=== PATIENT | female | born 1935 | race Caucasian/White ===

== ENCOUNTER → 2016-09-20 | Outpatient (CLI) | payer MEDICARE, BC ==
--- NOTE | 2016-09-20 12:10 | REPMRS ---
Patient History The patient states she had a clinical breast exam in 09/2016. Patient has history of Basal Cell cancer at age 58. No known family history of cancer. Digital Woman Screen Mammo: September 20, 2016 - Exam #: [id number] Bilateral CC and MLO view(s) were taken. Technologist: Niurka Spears Technologist Prior study comparison: July 25, 2015, digital woman screen mammo performed at [facility]. August 10, 2014, right breast digital mammo diagnostic unilateral, performed at [facility]. July 22, 2014, digital woman screen mammo performed at [facility]. FINDINGS: There are scattered fibroglandular densities. There has been no change in the appearance of the mammogram from the prior studies. There is a mild amount of scattered fibroglandular density which is fairly symmetric. There is no interval development of dominant mass, architectural distortion, or clustered microcalcification suggestive of malignancy. ASSESSMENT: BI-RADS/ACR category 1 mammogram. Negative. Recommendation Routine screening mammogram in 1 year (for women over age 40). This mammogram was interpreted with the aid of an FDA-approved computer-aided dectection system. Electronically Signed By: Andrea Hamlin MD 09/20/16 [id number]
== END ==
LOC: M WHC 10:34
PROVIDERS: ATTEND Nurse Practitioner Women's Health
DX: Z12.31 Encounter for screening mammogram for malignant neoplasm of breast (principal); Z78.0 Asymptomatic menopausal state
CPT/HCPCS: G0202; G0463

== ENCOUNTER 2017-03-04 21:47 | Emergency (ER) | payer MEDICARE, BC ==
[~2017-03-04] VITALS: Ht 162.6 cm; Wt 82.0 kg
[2017-03-04] MEDS ORDERED: NS 1,000 ML IV SCH (21:56)
[2017-03-04] MEDS ORDERED: ATEN25TA PO (22:05)
[2017-03-04] MEDS ORDERED: QUIN5TAB7 PO (22:06)
[2017-03-04] MEDS ORDERED: SIMV20TA2 PO (22:07)
[2017-03-04] MEDS ORDERED: DILT240C77 PO (22:12)
[2017-03-04] MEDS ORDERED: METOPROLOL TART 25 MG TABLET PO ONE (22:15)
[2017-03-04 22:38] LABS: BASO % 0.4 % (0.0-1.0); EOS # 0.2 K/mm3 (0.0-0.50); EOS % 2.8 % (0.0-3.0); LARGE UNSTAINED CELL # 0.1 K/mm3 (0.0-0.4); LARGE UNSTAINED CELL % 1.3 % (0.0-4.0); LYMPH # 1.3 K/mm3 (1.5-4.5); LYMPH % 17.3 % (24.0-44.0); MEAN CORPUSCULAR HEMOGLOBIN 32.6 pg (27.0-33.0); MEAN CORPUSCULAR HGB CONC 33.5 g/dl (32.0-36.5); MEAN CORPUSCULAR VOLUME 97.3 fl (80.0-96.0); MONO # 0.6 K/mm3 (0.0-0.8); NEUTROPHILS % 70.2 % (36.0-66.0); PLATELET COUNT, AUTOMATED 262 k/mm3 (150-450); RED CELL DISTRIBUTION WIDTH 12.8 % (11.5-14.5); WHITE BLOOD COUNT 7.2 K/mm3 (4.0-10.0)
[2017-03-04] MEDS: METOPROLOL 5 MG/5 ML VIAL IV SCH ×3 (22:48→23:04)
[2017-03-04 22:50] LABS: INR 0.92
[2017-03-04 22:56] LABS: ALBUMIN 3.8 GM/DL (3.2-5.2); ALBUMIN/GLOBULIN RATIO 1.09 (1.00-1.93); ALKALINE PHOSPHATASE 99 U/L (45-117); ALT/SGPT 19 U/L (12-78); ANION GAP 8 MEQ/L (8-16); AST/SGOT 17 U/L (15-37); BILIRUBIN,DIRECT < 0.1 MG/DL (0.0-0.2); BILIRUBIN,TOTAL 0.2 MG/DL (0.2-1.0); BLOOD UREA NITROGEN 18 MG/DL (7-18); CARBON DIOXIDE LEVEL 24 MEQ/L (21-32); CHLORIDE LEVEL 109 MEQ/L (98-107); CREATININE FOR GFR 1.03 MG/DL (0.55-1.02); GLOMERULAR FILTRATION RATE 54.7 (>32); GLUCOSE, FASTING 125 MG/DL (83-110); POTASSIUM SERUM 4.1 MEQ/L (3.5-5.1); SODIUM LEVEL 141 MEQ/L (136-145); TOTAL PROTEIN 7.3 GM/DL (6.4-8.2)
[2017-03-04] MEDS ORDERED: METOPROLOL 5 MG/5 ML VIAL IV STA (23:21)
[2017-03-05] MEDS ORDERED: ATEN50TA2 PO
[2017-03-05] MEDS ORDERED: METOPROLOL TART 50 MG TAB PO ONE (00:45)
[2017-03-05] MEDS: METOPROLOL 5 MG/5 ML VIAL IV SCH ×4 (01:45→02:13)
[2017-03-05 02:13] VITALS: BP 146/88
[2017-03-05] MEDS ORDERED: ELIQ5TAB PO (03:23)
[2017-03-05] MEDS ORDERED: APIXABAN 5 MG TAB (ELIQUIS) PO ONE (03:30)
[2017-03-05 03:40] VITALS: BP 134/90
--- NOTE | 2017-03-05 07:37 | REP ---
Portable chest, single AP view, the patient sitting, 10:38 p.m.: Comparison is 11/12/2014. The lung pro are clear. The cardiac size is normal. The hellen, mediastinum, and bony thorax are unremarkable. Impression: Negative portable chest. There is no interval change. Signed by Boston Lazo MD 03/05/2017 07:29 A
--- NOTE | 2017-03-05 09:04 | ECGEPIP ---
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
--- NOTE | 2017-03-05 09:05 | ECGEPIP ---
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
== END 2017-03-05 04:11 | disposition home or self-care (01) ==
LOC: EDBD 21:47 → M ED 21:47
DX: I48.91 Unspecified atrial fibrillation (principal); R00.2 Palpitations; Z79.899 Other long term (current) drug therapy

== ENCOUNTER 2017-12-09 08:32 | Day surgery (SDC) | payer MEDICARE, BC ==
[2017-12-09 09:06] LABS: HEMATOCRIT 37.1 % (36.0-47.0); HEMOGLOBIN 12.3 g/dl (12.0-15.5); MEAN CORPUSCULAR HEMOGLOBIN 32.3 pg (27.0-33.0); MEAN CORPUSCULAR HGB CONC 33.2 g/dl (32.0-36.5); MEAN CORPUSCULAR VOLUME 97.4 fl (80.0-96.0); PLATELET COUNT, AUTOMATED 270 10^3/uL (150-450); RED BLOOD COUNT 3.81 10^6/uL (4.00-5.40); RED CELL DISTRIBUTION WIDTH 12.6 % (11.5-14.5)
[2017-12-09] MEDS: LR 1,000 ML IV (09:21)
[2017-12-09 09:24] LABS: ALBUMIN 3.9 GM/DL (3.2-5.2); ALBUMIN/GLOBULIN RATIO 0.89 (1.00-1.93); ALKALINE PHOSPHATASE 85 U/L (45-117); ALT/SGPT 15 U/L (12-78); ANION GAP 5 MEQ/L (8-16); AST/SGOT 18 U/L (7-37); BILIRUBIN,TOTAL 0.4 MG/DL (0.2-1.0); BLOOD UREA NITROGEN 18 MG/DL (7-18); CALCIUM LEVEL 9.4 MG/DL (8.8-10.2); CARBON DIOXIDE LEVEL 25 MEQ/L (21-32); CHLORIDE LEVEL 110 MEQ/L (98-107); CREATININE FOR GFR 0.97 MG/DL (0.55-1.30); GLOMERULAR FILTRATION RATE 58.5 (>32); GLUCOSE, FASTING 109 MG/DL (70-100); SODIUM LEVEL 140 MEQ/L (136-145); TOTAL PROTEIN 8.3 GM/DL (6.4-8.2)
[2017-12-09] MEDS ORDERED: PROPOFOL 200 MG/20 ML VIAL As Ordered ×2 (10:08→11:26)
[2017-12-09] MEDS ORDERED: MIDAZOLAM INJ 2 MG/2 ML VIAL (J2250) As Ordered (10:08)
[2017-12-09] MEDS ORDERED: LIDOCAINE 2% INJ 100 MG/5 ML SDV (FOR ANES.) As Ordered (10:08)
[2017-12-09] MEDS ORDERED: fentaNYL 100 MCG/2 ML INJECTION (J3010) As Ordered (10:08)
[2017-12-09] MEDS: LIDOCAINE W/EPINEPHRINE 1% 20ML VIAL As Ordered (11:06)
[2017-12-09] MEDS: BACITRACIN OINT 30GM As Ordered (12:05)
== END 2017-12-09 13:25 | disposition home or self-care (01) ==
LOC: M SDC 08:32
DX: C44.41 Basal cell carcinoma of skin of scalp and neck (principal); I48.91 Unspecified atrial fibrillation; Z79.02 Long term (current) use of antithrombotics/antiplatelets; K21.9 Gastro-esophageal reflux disease without esophagitis; G47.30 Sleep apnea, unspecified; Z79.899 Other long term (current) drug therapy
CPT/HCPCS: 11622

== ENCOUNTER → 2018-01-02 | Outpatient (CLI) | payer MEDICARE, BC | LOC: M WHC 09:34 | DX: Z01.419 Encounter for gynecological examination (general) (routine) without abnormal findings (principal); Z12.31 Encounter for screening mammogram for malignant neoplasm of breast (principal) | CPT/HCPCS: 77067 ==

== ENCOUNTER → 2018-02-23 | Outpatient (REF) | payer MEDICARE, BC | LOC: M SFHCLERA 13:48 | DX: R30.0 Dysuria (principal) | CPT/HCPCS: 87086 ==

== ENCOUNTER 2018-06-28 14:30 | Emergency (ER) | payer MEDICARE, BC ==
[2018-06-28 15:25] LABS: BASO % 0.2 % (0.0-1.0); EOS % 0.3 % (0.0-3.0); HEMATOCRIT 36.4 % (36.0-47.0); IMMATURE GRANULOCYTE % 0.5 % (0-3.0); LYMPH # 0.8 10^3/uL (1.5-4.5); LYMPH % 12.2 % (24.0-44.0); MEAN CORPUSCULAR HEMOGLOBIN 31.8 pg (27.0-33.0); MEAN CORPUSCULAR VOLUME 96.6 fl (80.0-96.0); MONO % 14.7 % (0.0-5.0); NEUTROPHILS # 4.8 10^3/uL (1.8-7.7); NEUTROPHILS % 72.1 % (36.0-66.0); PLATELET COUNT, AUTOMATED 254 10^3/uL (150-450); RED BLOOD COUNT 3.77 10^6/uL (4.00-5.40); RED CELL DISTRIBUTION WIDTH 12.7 % (11.5-14.5); WHITE BLOOD COUNT 6.6 10^3/uL (4.0-10.0)
[2018-06-28 15:32] LABS: KETONE, URINE AUTO RFX TRACE mg/dL (NEGATIVE); MUCUS, URINE RFX SMALL (NEGATIVE); NITRITE, URINE AUTO RFX NEGATIVE (NEGATIVE); RBC, URINE AUTO RFX 2 /HPF (0-3); SPECIFIC GRAVITY UR AUTO RFX 1.025 (1.002-1.035); SQUAM EPITHELIAL CELL UR AURFX 1 /HPF (0-6); WBC, URINE AUTO RFX 2 /HPF (0-3)
[2018-06-28 15:36] LABS: PROTHROMBIN TIME 16.4 SECONDS (12.1-14.4)
[2018-06-28 15:37] LABS: PARTIAL THROMBOPLASTIN TIME 30.3 SECONDS (25.4-37.6)
[2018-06-28] MEDS: MORPHINE 2 MG/ML 1ML SYRINGE (J2270) IV (15:43)
[2018-06-28] MEDS: ONDANSETRON 4MG/2ML VIAL (J2405) IV (15:43)
[2018-06-28] MEDS: NS 1,000 ML IV (15:44)
[2018-06-28] MEDS: ACETAMINOPHEN TAB 650MG DOSE (2X325MG) PO (15:44)
[2018-06-28 15:55] LABS: LEUKOCYTE ESTERASE UR AUTO RFX TRACE (NEGATIVE)
[2018-06-28 15:56] LABS: ALBUMIN 3.4 GM/DL (3.2-5.2); ALBUMIN/GLOBULIN RATIO 0.85 (1.00-1.93); ALKALINE PHOSPHATASE 69 U/L (45-117); ALT/SGPT 21 U/L (12-78); ANION GAP 6 MEQ/L (8-16); AST/SGOT 32 U/L (7-37); BILIRUBIN,DIRECT < 0.1 MG/DL (0.0-0.2); BILIRUBIN,TOTAL 0.6 MG/DL (0.2-1.0); BLOOD UREA NITROGEN 14 MG/DL (7-18); CALCIUM LEVEL 9.1 MG/DL (8.8-10.2); CARBON DIOXIDE LEVEL 26 MEQ/L (21-32); CHLORIDE LEVEL 104 MEQ/L (98-107); CK-MB VALUE MASS < 1.0 NG/ML (<3.6); CPK CREATINE PHOSPHOKINASE 116 U/L (26-192); CREATININE FOR GFR 0.92 MG/DL (0.55-1.30); GLOMERULAR FILTRATION RATE > 60.0 (>32); GLUCOSE, FASTING 118 MG/DL (70-100); LIPASE 133 U/L (73-393); MB/CK RELATIVE INDEX 0.86 (< OR =4); SODIUM LEVEL 136 MEQ/L (136-145); TOTAL PROTEIN 7.4 GM/DL (6.4-8.2); TROPONIN I < 0.02 NG/ML (< 0.10)
[2018-06-28] MEDS ORDERED: GASTROGRAFIN SOLUTION 30ML (Q9963) As Ordered (16:54)
[2018-06-28] MEDS: GASTROGRAFIN SOLUTION 30ML PO ×2 (17:00→17:35)
[2018-06-28] MEDS: CIPROFLOXACIN 400 MG in APPROPRIATE DILUENT 1 EA IV (18:34)
[2018-06-28] MEDS ORDERED: ISOVUE-370 76% 100ML VIAL (Q9967) As Ordered (18:36)
== END 2018-06-28 20:15 | disposition home or self-care (01) ==
LOC: M ED 14:30
DX: A04.5 Campylobacter enteritis (principal); A08.0 Rotaviral enteritis; R94.31 Abnormal electrocardiogram [ECG] [EKG]; I48.91 Unspecified atrial fibrillation; I10 Essential (primary) hypertension; E78.79 Other disorders of bile acid and cholesterol metabolism; Z79.01 Long term (current) use of anticoagulants; Z79.899 Other long term (current) drug therapy
CPT/HCPCS: J2405

== ENCOUNTER → 2019-01-07 | Outpatient (CLI) | payer MEDICARE, BC ==
[~2019-01-07] MED LIST: ATEN25TA PO; ATEN50TA2 PO; CALTCHW4 PO; CIPR-249 PO; DILT1CAP5 PO; DILT1CAP6 PO; ELIQ5TAB PO; LACTTAB PO; MELA10TA3 PO; METO50TA7; OCUVTAB PO; OMEP20CA3 PO; PERCOCET PO; PRAV10TA3 PO; PROB1CHW7 PO; QUIN1TAB PO; QUIN1TAB3 PO; SIMV20TA2 PO; TYLE500T78 PO; VITA400C7 PO; VITA500T3 PO; ZYRT10CA PO
--- NOTE | 2019-01-07 12:32 | REPMRS ---
Patient History The patient states she had a clinical breast exam in 12/2018. Patient has history of basal cell skin cancer at age 58. No known family history of cancer. No Hormone Replacement Therapy 3D TOMOSYNTHESIS WAS PERFORMED. Digital Woman Screen Mammo: January 07, 2019 - Exam #: [id number] Bilateral CC and MLO view(s) were taken. Technologist: Jesica Domingo, Technologist Prior study comparison: January 02, 2018, digital woman screen mammo performed at [facility]. September 20, 2016, digital woman screen mamm[facility]. FINDINGS: The breast tissue is heterogeneously dense. This may lower the sensitivity of mammography. There has been no change in the appearance of the mammogram from the prior studies. There is a moderate amount of residual fibroglandular tissue which is fairly symmetric. There is no interval development of dominant mass, areas of architectural distortion, or clustered microcalcification typical of malignancy. Assessment: BI-RADS/ACR category 1 mammogram. Negative Mammogram. Recommendation Routine screening mammogram in 1 year (for women over age 40). This mammogram was interpreted with the aid of an FDA-approved computer-aided dectection system. Electronically Signed By: Boston Espinoza MD 01/07/19 [id number]
== END ==
LOC: M WHC 10:46
PROVIDERS: ATTEND Nurse Practitioner Women's Health
DX: Z01.419 Encounter for gynecological examination (general) (routine) without abnormal findings (principal); Z12.31 Encounter for screening mammogram for malignant neoplasm of breast; Z85.828 Personal history of other malignant neoplasm of skin
CPT/HCPCS: 77063; 77067; G0101

== ENCOUNTER → 2020-01-11 | Outpatient (CLI) | payer MEDICARE, BC ==
[~2020-01-11] MED LIST changes: +CYAN500T8 PO; +OMEP1CAP73 PO; -OMEP20CA3 PO; -SIMV20TA2 PO; +SIMV20TA22 PO; -VITA500T3 PO
--- NOTE | 2020-01-11 12:17 | REPMRS ---
Patient History The patient states she has not had a clinical breast exam in over a year. No known family history of cancer. No Hormone Replacement Therapy 3D TOMOSYNTHESIS WAS PERFORMED. The Dary Malcolm lifetime risk for breast cancer is 0.3%. VOLPARA DENSITY A. Digital Woman Screen Mammo: January 11, 2020 - Exam #: [id number] Bilateral CC and MLO view(s) were taken. Technologist: Izzy Pederson, Technologist Prior study comparison: January 07, 2019, bilateral digital woman screen mammo performed at [facility]. January 02, 2018, digital woman screen mammo performed at [facility]. FINDINGS: There are scattered fibroglandular densities. There has been no change in the appearance of the mammogram from the prior studies. There is a mild amount of residual fibroglandular tissue which is fairly symmetric. There is no interval development of dominant mass, architectural distortion, or clustered microcalcification suggestive of malignancy. Assessment: BI-RADS/ACR category 1 mammogram. Negative Mammogram. Recommendation Routine screening mammogram in 1 year (for women over age 40). This mammogram was interpreted with the aid of an FDA-approved computer-aided dectection system. Electronically Signed By: Boston Espinoza MD 01/11/20 [id number]
== END ==
LOC: M WHC 11:13
PROVIDERS: ATTEND Nurse Practitioner Women's Health
DX: Z12.31 Encounter for screening mammogram for malignant neoplasm of breast (principal)
CPT/HCPCS: 77063; 77067; G0463

== ENCOUNTER → 2020-05-26 | Outpatient (CLI) | payer MEDICARE, BC | LOC: M WUC 09:39 | PROVIDERS: ATTEND Internal Medicine Cardiovascular Disease | DX: I48.0 Paroxysmal atrial fibrillation (principal) ==

== ENCOUNTER → 2020-06-03 | Outpatient (CLI) | payer MEDICARE, BC | LOC: M LABSMTC 09:59 | PROVIDERS: ATTEND Internal Medicine Cardiovascular Disease | DX: Z20.828 Contact with and (suspected) exposure to other viral communicable diseases (principal) | CPT/HCPCS: C9803; U0003 ==

== ENCOUNTER → 2021-01-11 | Outpatient (CLI) | payer MEDICARE, BC ==
[~2021-01-11] MED LIST changes: +CYAN500T14 PO; -CYAN500T8 PO
--- NOTE | 2021-01-11 11:58 | REPMRS ---
Patient History The patient states she has not had a clinical breast exam in over a year. No known family history of cancer. No Hormone Replacement Therapy No breast complaints today Patient signed the MRS sheet 1st covid vaccine 09/23/20-left arm-Moderna 2nd covid vaccine 10/24/20-left arm Priors on PACS Patient Identification Verified Pacemaker 02/2020 Patient states she has gained some weight, not sure how much Best views possible on both MLO'S, patient is becoming more kyphotic and has gained weight in the last year-not sure how much, Digital Woman Screen Mammo: January 11, 2021 - Exam #: [id number] Bilateral CC and MLO view(s) were taken. Technologist: Libby Cabral, Technologist Prior study comparison: January 11, 2020, bilateral digital woman screen mammo performed at [facility]. January 07, 2019, bilateral digital woman screen mammo performed at [facility]. FINDINGS: There are scattered fibroglandular densities. Screening. Digital screening (2D) mammography was performed bilaterally in the CC and MLO projections. Additionally, breast tomosynthesis (3D mammography) was performed bilaterally in the CC and MLO projections. Todays exam was compared to the prior exams. By history, the patient has no complaints of a palpable breast abnormality or other significant breast complaints. The breasts are unchanged in size and shape. There are no hollis-soft tissue densities or spiculated masses. There is no internal architectural distortion. Once again, stable benign appearing calcifications are seen.There are no suspicious hollis-calcific clusters. Skin thickening or nipple retraction is not present. IMPRESSION: BI-RADS Category 2- Benign Findings. There is no evidence of malignant alteration of the breasts. Followup examination recommended in one year. The Volpara volumetric breast density category is B, there are scattered areas of fibroglandular density. This mammogram was read with the assistance of [employer],an FDA approved computer aided detection system for mammography. Negative x-ray reports should not delay surgical consultation if a dominant or clinically suspicious mass is present. Not all breast cancers can be identified by mammography. Therefore, we recommend that you continue to perform regular breast self-examination and physical examination and then promptly contact your physician of any concerns or changes. Adenosis and dense breasts may obscure an underlying neoplasm. Assessment: BI-RADS/ACR category 2 mammogram. Benign Findings. Recommendation Routine screening mammogram of both breasts in 1 year. Electronically Signed By: Rm Guillen DO 01/11/21 [id number]
== END ==
LOC: M WHC 10:59
PROVIDERS: ATTEND Nurse Practitioner Women's Health
DX: Z12.31 Encounter for screening mammogram for malignant neoplasm of breast (principal); R92.1 Mammographic calcification found on diagnostic imaging of breast

== ENCOUNTER → 2021-07-25 | Outpatient (CLI) | payer BC, MEDICARE ==
[2021-07-25 17:48] LABS: HEMATOCRIT 31.8 % (36.0-47.0); HEMOGLOBIN 10.2 g/dl (12.0-15.5); MEAN CORPUSCULAR HEMOGLOBIN 32.9 pg (27.0-33.0); MEAN CORPUSCULAR HGB CONC 32.1 g/dl (32.0-36.5); MEAN CORPUSCULAR VOLUME 102.6 fl (80.0-96.0); PLATELET COUNT, AUTOMATED 217 10^3/uL (150-450); WHITE BLOOD COUNT 4.8 10^3/uL (4.0-10.0)
[2021-07-25 17:51] LABS: ALBUMIN 3.8 GM/DL (3.2-5.2); BILIRUBIN,TOTAL 0.5 MG/DL (0.2-1.0); CALCIUM LEVEL 9.8 MG/DL (8.8-10.2); CREATININE FOR GFR 1.02 MG/DL (0.55-1.30); GLOMERULAR FILTRATION RATE 54.8 (>32); PERCENT SATURATION 28.9 % (13.2-45.0); POTASSIUM SERUM 5.2 MEQ/L (3.5-5.1); TOTAL PROTEIN 6.9 GM/DL (6.4-8.2)
[2021-07-26 10:58] LABS: FOLATE 14.1 NG/ML
== END ==
LOC: M PLALAB 15:04
PROVIDERS: ATTEND Physician Assistant Medical
DX: D50.9 Iron deficiency anemia, unspecified (principal)

== ENCOUNTER → 2021-08-30 | Outpatient (CLI) | payer MEDICARE ==
[~2021-08-30] MED LIST changes: +BALANCE OF NATURE PO; +BUSP5TA PO; +COQ1200C3 PO; +E-Z-PAQUE 96% w/w SUSP 176GM BTL As Ordered ONE; +LABE200T32 PO; +LASI20TA3 PO; +PRESCAP4 PO; +SERT50TA29 PO; +TRAM50TA2 PO; +VALS1TAB67 PO
== END ==
LOC: M RAD 09:32
PROVIDERS: ATTEND Physician Assistant Medical
DX: D64.9 Anemia, unspecified (principal)

== ENCOUNTER → 2021-08-30 | Outpatient (CLI) | payer MEDICARE ==
[~2021-08-30] MED LIST changes: -E-Z-PAQUE 96% w/w SUSP 176GM BTL As Ordered ONE
== END ==
LOC: M LABSMTC 11:24
PROVIDERS: ATTEND Anesthesiology
DX: Z01.818 Encounter for other preprocedural examination (principal); Z20.822 Contact with and (suspected) exposure to COVID-19

== ENCOUNTER 2021-09-04 11:16 | Day surgery (SDC) | payer MEDICARE ==
[~2021-09-04] VITALS: Ht 162.6 cm; Wt 81.4 kg
[~2021-09-04 11:16] MED LIST changes: +NS 1,000 ML IV ONE
[2021-09-04] MEDS ORDERED: LIDOCAINE 2% 100MG/5ML SDV (FOR ANES.) As Ordered ONE (12:35)
[2021-09-04] MEDS ORDERED: propofoL 200 MG/20 ML VIAL As Ordered ONE (12:35)
[2021-09-04 13:55] VITALS: BP 156/68
== END 2021-09-04 14:10 | disposition home or self-care (01) ==
LOC: M OPP 11:16
PROVIDERS: ATTEND Internal Medicine Gastroenterology
DX: K57.30 Diverticulosis of large intestine without perforation or abscess without bleeding (principal); K64.8 Other hemorrhoids; D50.9 Iron deficiency anemia, unspecified; K22.2 Esophageal obstruction; Z79.891 Long term (current) use of opiate analgesic; Z79.899 Other long term (current) drug therapy; Z88.1 Allergy status to other antibiotic agents; Z80.3 Family history of malignant neoplasm of breast; Z80.8 Family history of malignant neoplasm of other organs or systems

== ENCOUNTER → 2021-09-26 | Outpatient (CLI) | payer MEDICARE ==
[~2021-09-26] MED LIST changes: -NS 1,000 ML IV ONE
== END ==
LOC: M SOG 08:29
PROVIDERS: ATTEND Orthopaedic Surgery Hand Surgery
DX: M79.641 Pain in right hand (principal); M79.642 Pain in left hand; M19.031 Primary osteoarthritis, right wrist; M19.032 Primary osteoarthritis, left wrist

== ENCOUNTER → 2021-10-23 | Outpatient (CLI) | payer MEDICARE ==
[~2021-10-23] MED LIST changes: +ACE65ERTAB PO; +LABE200T3 PO; -LABE200T32 PO
== END ==
LOC: M LABSMTC 09:16
PROVIDERS: ATTEND Anesthesiology
DX: Z01.812 Encounter for preprocedural laboratory examination (principal); Z20.822 Contact with and (suspected) exposure to COVID-19

== ENCOUNTER 2021-10-27 06:03 | Day surgery (SDC) | payer MEDICARE ==
[~2021-10-27] VITALS: Ht 162.6 cm; Wt 82.0 kg
[2021-10-27] MEDS ORDERED: LR 1,000 ML IV ONE (06:30)
[2021-10-27] MEDS ORDERED: fentaNYL 100 MCG/2 ML INJECTION As Ordered ONE (07:16)
[2021-10-27] MEDS ORDERED: LIDOCAINE 2% 100MG/5ML SDV (FOR ANES.) As Ordered ONE (07:16)
[2021-10-27] MEDS ORDERED: propofoL 200 MG/20 ML VIAL As Ordered ONE ×2 (07:16→07:52)
[2021-10-27] MEDS ORDERED: BUPIVACAINE HCL 0.25% 30ML VIAL As Ordered ONE (07:17)
[2021-10-27] MEDS ORDERED: MIDAZOLAM INJ 2MG/2ML VIAL (J2250 PER 1MG) As Ordered ONE (07:17)
[2021-10-27] MEDS ORDERED: KETOROLAC 60MG 2ML VIAL As Ordered ONE (08:03)
[2021-10-27 08:30] VITALS: BP 165/80
[2021-10-27] MEDS ORDERED: oxyCODONE 5MG TAB PO PRN (08:35)
[2021-10-27] MEDS ORDERED: ONDANSETRON 4MG/2ML VIAL IV PRN (08:35)
[2021-10-27] MEDS ORDERED: LR 1,000 ML IV SCH (08:35)
== END 2021-10-27 08:42 | disposition home or self-care (01) ==
LOC: M SDC 06:03
PROVIDERS: ATTEND Orthopaedic Surgery Hand Surgery
DX: G56.02 Carpal tunnel syndrome, left upper limb (principal); I48.91 Unspecified atrial fibrillation; I10 Essential (primary) hypertension; E78.5 Hyperlipidemia, unspecified; G47.33 Obstructive sleep apnea (adult) (pediatric); K44.9 Diaphragmatic hernia without obstruction or gangrene; K21.9 Gastro-esophageal reflux disease without esophagitis; K58.8 Other irritable bowel syndrome; Z79.01 Long term (current) use of anticoagulants; Z79.899 Other long term (current) drug therapy; Z88.0 Allergy status to penicillin; Z88.8 Allergy status to other drugs, medicaments and biological substances
CPT/HCPCS: 29848; J1885; J2250; J3010

== ENCOUNTER → 2022-03-05 | Outpatient (CLI) | payer MEDICARE ==
[~2022-03-05] MED LIST changes: +ENOX80IN3; +RELIEF FACTOR PO
== END ==
LOC: M SOG 15:29
PROVIDERS: ATTEND Orthopaedic Surgery Hand Surgery
DX: M79.645 Pain in left finger(s) (principal); M19.032 Primary osteoarthritis, left wrist; M19.042 Primary osteoarthritis, left hand

== ENCOUNTER → 2022-04-13 | Outpatient (CLI) | payer MEDICARE ==
[~2022-04-13] MED LIST changes: -LABE200T3 PO; +LABE200T5 PO
== END ==
LOC: M WHC 12:59
PROVIDERS: ATTEND Nurse Practitioner Family
DX: Z12.31 Encounter for screening mammogram for malignant neoplasm of breast (principal)

== ENCOUNTER → 2022-06-15 | Outpatient (CLI) | payer MEDICARE ==
[2022-06-15 10:08] LABS: BASO % 0.2 % (0.0-1.0); EOS # 0.1 10^3/uL (0.0-0.5); EOS % 2.5 % (0.0-3.0); HEMATOCRIT 29.2 % (36.0-47.0); HEMOGLOBIN 9.3 g/dl (12.0-15.5); LYMPH # 0.6 10^3/uL (1.5-5.0); LYMPH % 13.9 % (24.0-44.0); MEAN CORPUSCULAR HEMOGLOBIN 32.5 pg (27.0-33.0); MEAN CORPUSCULAR HGB CONC 31.8 g/dl (32.0-36.5); MEAN CORPUSCULAR VOLUME 102.1 fl (80.0-96.0); MONO # 0.6 10^3/uL (0.0-0.8); MONO % 13.5 % (2.0-8.0); NEUTROPHILS # 3.1 10^3/uL (1.5-8.5); NEUTROPHILS % 69.7 % (36.0-66.0); PLATELET COUNT, AUTOMATED 215 10^3/uL (150-450); RED BLOOD COUNT 2.86 10^6/uL (4.00-5.40); WHITE BLOOD COUNT 4.5 10^3/uL (4.0-10.0)
[2022-06-15 10:37] LABS: ALBUMIN 3.6 GM/DL (3.2-5.2); BILIRUBIN,TOTAL 0.5 MG/DL (0.2-1.0); CHOLESTEROL RISK RATIO 2.196 (<5); CREATININE FOR GFR 0.95 MG/DL (0.55-1.30); GLOMERULAR FILTRATION RATE 59.4 (>32); POTASSIUM SERUM 4.8 MEQ/L (3.5-5.1); TOTAL PROTEIN 6.6 GM/DL (6.4-8.2)
[2022-06-15 10:41] LABS: APPEARANCE, URINE MANUAL CLEAR (CLEAR); BILIRUBIN, URINE MANUAL NEGATIVE (NEGATIVE); BLOOD URINE MANUAL NEGATIVE (NEGATIVE); COLOR, URINE MANUAL YELLOW (YELLOW); GLUCOSE, URINE (UA) MANUAL NEGATIVE (NEGATIVE); KETONE, URINE MANUAL NEGATIVE (NEGATIVE); LEUKOCYTE ESTERASE, URINE MAN NEGATIVE (NEGATIVE); NITRITE, URINE MANUAL NEGATIVE (NEGATIVE); PROTEIN, URINE MANUAL NEGATIVE (NEGATIVE); UROBILINOGEN, URINE MANUAL NORMAL (NORMAL)
== END ==
LOC: M WUC 08:23
PROVIDERS: ATTEND Family Medicine
DX: D64.9 Anemia, unspecified (principal); I10 Essential (primary) hypertension; E78.5 Hyperlipidemia, unspecified

== ENCOUNTER → 2024-02-26 | Outpatient (CLI) | payer MEDICARE ==
[~2024-02-26] MED LIST changes: -DILT1CAP5 PO; -DILT1CAP6 PO; +DILT240C41 PO; +DILT240C42 PO; -MELA10TA3 PO; +MELA1TAB55 PO
== END ==
LOC: M WHC 14:43
PROVIDERS: ATTEND Nurse Practitioner Family
DX: Z12.31 Encounter for screening mammogram for malignant neoplasm of breast (principal); R92.323 Mammographic fibroglandular density, bilateral breasts